=== PATIENT | female | born 1985 | race African-American/Black ===

== ENCOUNTER 2022-05-16 15:03 | Outpatient (CLI) | payer BC, MEDICAID | END 2022-05-16 15:04 | disposition home or self-care (01) | LOC: BICULT 15:03 | PROVIDERS: ATTEND Family Medicine | DX: Z34.83 Encounter for supervision of other normal pregnancy, third trimester (principal); Z3A.33 33 weeks gestation of pregnancy | CPT/HCPCS: 76805 ==